=== PATIENT | female | born 1945 | race Caucasian/White ===

== ENCOUNTER 2024-05-27 07:19 | Day surgery (SDC) | payer MEDICARE, OTHER ==
[~2024-05-27] VITALS: Ht 165.1 cm; Wt 79.6 kg
[2024-05-27] VITALS (8 sets, daily range): BP systolic 112–131; BP diastolic 51–79; PULSE 65–83; RESP 13–17; TEMP 98.3; O2SAT 15–97
[2024-05-27] MEDS ORDERED: VANCOMYCIN 1,500MG in NS 300ml IVPB IV ONE (07:50)
[2024-05-27] MEDS ORDERED: ATOR10TA70 PO (08:01)
[2024-05-27] MEDS ORDERED: AMI200T PO (08:01)
[2024-05-27] MEDS ORDERED: DILT240C78 PO (08:01)
[2024-05-27] MEDS ORDERED: METH2.5T55 PO (08:01)
[2024-05-27] MEDS ORDERED: RIVA20TA PO (08:01)
[2024-05-27] MEDS ORDERED: FOLI1TAB27 PO (08:01)
[2024-05-27] MEDS ORDERED: DONE10TA44 PO (08:01)
[2024-05-27] MEDS ORDERED: INSU100V13 SQ (08:03)
[2024-05-27] MEDS ORDERED: SEMA2PEN SUBCUT (08:03)
[2024-05-27] MEDS ORDERED: DAPA5TAB PO (08:04)
[2024-05-27] MEDS: VANCOMYCIN/H2O 1.5g/300mL PB 300 ML IV ONE (08:32)
[2024-05-27 08:36] LABS: BASOPHILS % (AUTO) 0.7 % (0-1); EOSINOPHILS # (AUTO) 0.1 X10'3 (0-0.9); EOSINOPHILS % (AUTO) 1.5 % (0-6); HEMATOCRIT 40.9 % (35.0-45.0); HEMOGLOBIN 13.3 g/dl (12.0-16.0); LYMPHOCYTES # (AUTO) 1.4 X10'3 (1.1-4.8); LYMPHOCYTES % (AUTO) 22.1 % (21-51); MEAN CORPUSCULAR HEMOGLOBIN 31.8 PG (27.0-31.0); MEAN CORPUSCULAR HGB CONC 32.6 g/dL (33.0-36.5); MEAN CORPUSCULAR VOLUME 97.5 FL (78-98); MEAN PLATELET VOLUME 8.6 FL (7.4-10.4); MONOCYTES # (AUTO) 0.6 X10'3 (0-0.9); MONOCYTES % (AUTO) 9.5 % (2-12); NEUTROPHILS # (AUTO) 4.2 X10'3 (1.8-7.7); NEUTROPHILS % (AUTO) 66.2 % (42-75); PLATELET COUNT 196 X10'3 (140-440); RED CELL DISTRIBUTION WIDTH 18.8 % (11.5-14.5); WHITE BLOOD COUNT 6.4 X10'3 (4.5-11.0)
[2024-05-27 08:59] LABS: ALBUMIN 3.6 G/DL (3.4-5.0); ANION GAP 10 (8-16); BLOOD UREA NITROGEN 13 MG/DL (7-18); BUN/CREATININE RATIO 13.7 (10.0-20.0); CHLORIDE 106 MMOL/L (99-107); CREATININE 0.95 MG/DL (0.40-0.90); GLUCOSE 230 MG/DL (70-104); MAGNESIUM 2.1 MG/DL (1.5-2.4); POTASSIUM 4.1 MMOL/L (3.5-5.1); SODIUM 143 MMOL/L (135-145); TOTAL CARBON DIOXIDE 26.8 MMOL/L (24-32); eCRCL 43 ML/MIN; eGFR 57 ML/MIN
[2024-05-27 09:08] LABS: PROTHROMBIN TIME 10.8 SECONDS (9.0-12.0)
[2024-05-27] MEDS ORDERED: midazolam 1 mg/ML 2ml injection ONE ×2 (10:29→11:27)
[2024-05-27] MEDS ORDERED: fentaNYL/PF 50MCG/1 ML 2ML syringe ONE (10:29)
[2024-05-27] MEDS ORDERED: LIDOcaine 1% W/epiNEPHrine 1:100,000 20ml vial ONE (10:29)
[2024-05-27] MEDS ORDERED: vancomycin 1,000mg inj ONE (10:29)
[2024-05-27] MEDS ORDERED: ceFAZolin 1000mg inj ONE (11:05)
[2024-05-27] MEDS ORDERED: normal saline 500ml IV soln 500 ML IV ONE (12:15)
[2024-05-27 12:38] LABS: PLATELET ESTIMATE NORMAL
[2024-05-27 12:39] LABS: ANISOCYTOSIS 2+
== END 2024-05-27 14:30 | disposition home or self-care (01) ==
LOC: SSTAY O 07:19
PROVIDERS: ATTEND Internal Medicine Cardiovascular Disease
DX: Z45.010 Encounter for checking and testing of cardiac pacemaker pulse generator [battery] (principal); I48.0 Paroxysmal atrial fibrillation; I49.5 Sick sinus syndrome; M06.9 Rheumatoid arthritis, unspecified; E11.22 Type 2 diabetes mellitus with diabetic chronic kidney disease; E78.5 Hyperlipidemia, unspecified; K21.9 Gastro-esophageal reflux disease without esophagitis; Z79.01 Long term (current) use of anticoagulants; G47.33 Obstructive sleep apnea (adult) (pediatric); Z79.899 Other long term (current) drug therapy; I34.0 Nonrheumatic mitral (valve) insufficiency; I35.1 Nonrheumatic aortic (valve) insufficiency
CPT/HCPCS: 33228; 36415; 80048; 83735; 85025; 85610; 93005; 99152; 99153; A6258; A6402; C1785; J0690; J2250; J3010; J3370; J3372; J3490; J7030; 85008; A6449